=== PATIENT | male | born 1960 | race African-American/Black ===

== ENCOUNTER 2022-09-23 05:30 | Inpatient (IN) ==
[2022-09-17 11:32] LABS: Basophils # 0.1 10*3/uL (0.0-0.2); Basophils % 0.6 % (0.0-0.8); Eosinophils # 0.1 10*3/uL (0.0-0.87); Eosinophils % 1.2 % (0.00-10.9); Hematocrit 40.3 VOL% (42.0-52.0); Hemoglobin 13.1 GM/DL (14.0-18.0); Immature Granulocytes % 0.2 %; Immature Granulocytes Absolute 0.02 #; Lymphocytes # 3.6 10*3/uL (1.4-4.0); Lymphocytes % 44.5 % (21.2-54.2); Mean Corpuscular HGB Conc 32.5 GM/DL (32-36); Mean Corpuscular Volume 83.6 FL (87-102); Mean Platelet Volume 11.4 FL (9.6-12.0); Monocytes # 0.6 10*3/uL (0.11-0.8); Monocytes % 7.3 % (1.7-12.7); Neutrophils % 46.2 % (38.7-73.9); Platelet Count 272 T/CUMM (130-400); Red Blood Count 4.82 MC/CUMM (3.8-5.5); Red Cell Distribution Width 15.6 % (9.3-17.3); White Blood Count 8.1 T/CUMM (4-12)
[2022-09-17 12:00] LABS: Alanine Aminotransferase 41 U/L (16-61); Alkaline Phosphatase 94 U/L (45-117); Aspartate Amino Transferase 57 U/L (0-37); Bilirubin,Total < 0.39 MG/DL (0.20-1.00); Blood Urea Nitrogen 20 MG/DL (7-18); Calcium 9.3 MG/DL (8.5-10.1); Carbon Dioxide 30 MMOL/L (21-32); Chloride 108 MMOL/L (98-107); Glucose 125 MG/DL (74-106); Osmolality,Calculated 284.3 MOS/KG (273-304); Potassium 3.8 MMOL/L (3.5-5.1); Sodium 141 MMOL/L (136-145); Total Protein 7.7 G/DL (6.4-8.2)
[2022-09-23] MEDS ORDERED: cefTRIAXone 1,000 MG in SODIUM CHLORIDE 0.9% 100 ML IV ONE (06:00)
[2022-09-23] MEDS ORDERED: ALVIMOPAN 12 MG CAPSULE PO ONE (06:00)
[2022-09-23] MEDS: LACTATED RINGERS 1,000 ML IV SCH ×2 (06:13→21:09)
[2022-09-23] MEDS ORDERED: LIDOCAINE 2% 5 ML VIAL ONE (06:17)
[2022-09-23] MEDS ORDERED: ROCURONIUM 50 MG/5 ML VIAL IV ONE ×3 (06:17→10:32)
[2022-09-23] MEDS ORDERED: ONDANSETRON 4 MG/2 ML VIAL ONE (06:17)
[2022-09-23] MEDS ORDERED: propofoL 200 MG/20 ML VIAL IV ONE (06:17)
[2022-09-23] MEDS ORDERED: SUCCINYLCHOLINE 200 MG/10 ML VIAL ONE (06:18)
[2022-09-23] MEDS ORDERED: ROPIVACAINE 0.5% 30 ML VIAL ONE ×3 (06:36→06:46)
[2022-09-23] MEDS ORDERED: fentaNYL 100 MCG/2 ML VIAL ONE ×2 (06:38→11:38)
[2022-09-23] MEDS ORDERED: MIDAZOLAM 2 MG/2 ML VIAL ONE (06:38)
[2022-09-23] MEDS ORDERED: LIDOCAINE 1% 5 ML VIAL ONE (06:46)
[2022-09-23] MEDS ORDERED: PHENYLEPHRINE 1 MG/10 ML SYRINGE IV ONE ×3 (07:51→09:53)
[2022-09-23] MEDS ORDERED: ACETAMINOPHEN INJ 1,000 MG/100 ML VIAL IV ONE (07:53)
[2022-09-23] MEDS ORDERED: GLYCOPYRROLATE 0.4 MG/2 ML VIAL ONE (08:24)
[2022-09-23] MEDS ORDERED: ALBUMIN 5% 12.5 GM/250 ML VIAL IV ONE (09:50)
[2022-09-23] MEDS ORDERED: PHENYLEPHRINE 10 MG/1 ML VIAL IV ONE ×2 (09:51→09:53)
[2022-09-23 10:44] LABS: Hyaline Casts,Urine 1 /LPF (0-3); Mucus,Urine Occasional /LPF (Occasional); RBC,Urine 10 /HPF (0-4)
[2022-09-23 10:45] LABS: Bilirubin,Urine Negative (Negative); Glucose,Urine (UA) Negative (Negative); Ketones,Urine Negative (Negative); Nitrite,Urine Negative (Negative); Protein,Urine Negative (Negative); Urine Appearance Clear (Clear); Urine Color Yellow (Yellow)
[2022-09-23 10:46] LABS: Blood, Urine Small mg/dL (Negative); Urine Urobilinogen 0.2 eU/dL (<2.0)
[2022-09-23] MEDS ORDERED: SEVOFLURANE 1 UNIT/15 MINUTE INH ONE ×3 (11:10→12:04)
[2022-09-23] MEDS ORDERED: SUGAMMADEX 200 MG/2 ML VIAL IV ONE (11:33)
[2022-09-23] MEDS ORDERED: SIMETHICONE CHEW 125 MG TABLET PO PRN (11:40)
[2022-09-23] MEDS ORDERED: HYDROmorphone 1 MG/1 ML SYRINGE IV PRN (11:40)
[2022-09-23] MEDS ORDERED: diphenhydrAMINE 50 MG/1 ML VIAL IV PRN (11:40)
[2022-09-23] MEDS ORDERED: PROMETHAZINE 25 MG/1 ML VIAL IM PRN (11:40)
[2022-09-23] MEDS ORDERED: ONDANSETRON 4 MG/2 ML VIAL IV PRN (11:40)
[2022-09-23] MEDS ORDERED: GLUCAGON 1 MG VIAL IM PRN (11:44)
[2022-09-23] MEDS ORDERED: DEXTROSE 10% 250 ML BAG IV PRN (11:44)
[2022-09-23 12:44] LABS: Basophils % 0.3 % (0.0-0.8); Eosinophils % 0.1 % (0.00-10.9); Hematocrit 38.6 VOL% (42.0-52.0); Hemoglobin 12.3 GM/DL (14.0-18.0); Immature Granulocytes % 1.6 %; Immature Granulocytes Absolute 0.23 #; Lymphocytes # 2.3 10*3/uL (1.4-4.0); Lymphocytes % 16.1 % (21.2-54.2); Mean Corpuscular HGB Conc 31.9 GM/DL (32-36); Mean Corpuscular Volume 86.2 FL (87-102); Mean Platelet Volume 10.8 FL (9.6-12.0); Monocytes % 7.5 % (1.7-12.7); Neutrophils % 74.4 % (38.7-73.9); Platelet Count 224 T/CUMM (130-400); Red Blood Count 4.48 MC/CUMM (3.8-5.5); Red Cell Distribution Width 15.7 % (9.3-17.3)
[2022-09-23 12:52] LABS: Calcium 8.7 MG/DL (8.5-10.1); Osmolality,Calculated 285.1 MOS/KG (273-304)
[2022-09-23] MEDS: SODIUM CHLORIDE 0.9% 1,000 ML IV SCH (13:20)
[2022-09-23] MEDS: ACETAMINOPHEN 325 MG TABLET PO SCH ×2 (14:29→18:16)
[2022-09-23] MEDS: OXYBUTYNIN 5 MG TABLET PO SCH ×2 (15:50→21:08)
[2022-09-23] MEDS: INSULIN REGULAR 100 UNIT/ML SUBCUT SCH ×2 (16:27→23:21)
[2022-09-23] MEDS: DOCUSATE SODIUM 100 MG CAPSULE PO SCH (21:06)
[2022-09-23] MEDS: ALVIMOPAN 12 MG CAPSULE PO SCH (21:06)
[2022-09-23] MEDS: GABAPENTIN 600 MG TABLET PO SCH (21:06)
[2022-09-23] MEDS: oxyCODONE/ACETAMINOPHEN 5-325 MG TABLET PO PRN (21:06)
[2022-09-23] MEDS: METOPROLOL TARTRATE 25 MG TABLET PO SCH (21:08)
[2022-09-23] MEDS: TOPIRAMATE 25 MG TABLET PO SCH (21:08)
[2022-09-24] MEDS: SODIUM CHLORIDE 0.9% 1,000 ML IV SCH ×2 (01:32→07:27)
[2022-09-24] MEDS: ACETAMINOPHEN 325 MG TABLET PO SCH ×5 (01:32→18:13)
[2022-09-24 05:10] LABS: Basophils % 0.3 % (0.0-0.8); Eosinophils % 0.2 % (0.00-10.9); Hematocrit 33.7 VOL% (42.0-52.0); Hemoglobin 11.3 GM/DL (14.0-18.0); Immature Granulocytes % 0.3 %; Immature Granulocytes Absolute 0.03 #; Lymphocytes # 3.5 10*3/uL (1.4-4.0); Mean Corpuscular HGB Conc 33.5 GM/DL (32-36); Mean Corpuscular Volume 83.8 FL (87-102); Monocytes % 9.2 % (1.7-12.7); Platelet Count 213 T/CUMM (130-400); Red Blood Count 4.02 MC/CUMM (3.8-5.5); Red Cell Distribution Width 15.6 % (9.3-17.3); White Blood Count 11.2 T/CUMM (4-12)
[2022-09-24 05:33] LABS: Calcium 8.7 MG/DL (8.5-10.1); Osmolality,Calculated 285.8 MOS/KG (273-304); Potassium 3.4 MMOL/L (3.5-5.1)
[2022-09-24] MEDS: cefTRIAXone 1,000 MG in SODIUM CHLORIDE 0.9% 100 ML IV SCH (05:48)
[2022-09-24] MEDS: LACTATED RINGERS 1,000 ML IV SCH (05:49)
[2022-09-24] MEDS ORDERED: MAGNESIUM SULF RIDER 4 GM/100 ML PREMIX IV PRN (07:20)
[2022-09-24] MEDS ORDERED: MAGNESIUM SULF RIDER 2 GM/50 ML PREMIX IV PRN (07:20)
[2022-09-24] MEDS: INSULIN REGULAR 100 UNIT/ML SUBCUT SCH ×4 (07:23→22:50)
[2022-09-24] MEDS ORDERED: POTASSIUM CHLORIDE 20 MEQ TABLET PO ONE (08:00)
[2022-09-24] MEDS ORDERED: MAGNESIUM SULF RIDER 2 GM/50 ML PREMIX IV ONE (08:00)
[2022-09-24] MEDS: OXYBUTYNIN 5 MG TABLET PO SCH ×3 (08:20→22:21)
[2022-09-24] MEDS: GABAPENTIN 600 MG TABLET PO SCH ×2 (08:21→22:22)
[2022-09-24] MEDS: PANTOPRAZOLE 40 MG TABLET PO SCH (08:21)
[2022-09-24] MEDS: METOPROLOL TARTRATE 25 MG TABLET PO SCH ×2 (08:21→22:21)
[2022-09-24] MEDS: allopurinoL 300 MG TABLET PO SCH (08:21)
[2022-09-24] MEDS: ALVIMOPAN 12 MG CAPSULE PO SCH ×2 (08:21→22:22)
[2022-09-24] MEDS: DOCUSATE SODIUM 100 MG CAPSULE PO SCH ×2 (08:22→22:22)
[2022-09-24] MEDS: oxyCODONE/ACETAMINOPHEN 5-325 MG TABLET PO PRN ×2 (08:27→13:34)
[2022-09-24] MEDS: TOPIRAMATE 25 MG TABLET PO SCH (22:21)
[2022-09-25] MEDS: ACETAMINOPHEN 325 MG TABLET PO SCH ×2 (00:46→06:34)
[2022-09-25 05:38] LABS: Basophils % 0.3 % (0.0-0.8); Eosinophils # 0.1 10*3/uL (0.0-0.87); Hematocrit 33.4 VOL% (42.0-52.0); Hemoglobin 11.2 GM/DL (14.0-18.0); Immature Granulocytes % 0.3 %; Immature Granulocytes Absolute 0.03 #; Lymphocytes % 32.5 % (21.2-54.2); Mean Corpuscular HGB Conc 33.5 GM/DL (32-36); Mean Corpuscular Volume 83.9 FL (87-102); Monocytes # 0.9 10*3/uL (0.11-0.8); Monocytes % 9.6 % (1.7-12.7); Neutrophils % 56.3 % (38.7-73.9); Platelet Count 211 T/CUMM (130-400); Red Blood Count 3.98 MC/CUMM (3.8-5.5); Red Cell Distribution Width 15.3 % (9.3-17.3); White Blood Count 9.3 T/CUMM (4-12)
[2022-09-25 05:55] LABS: Calcium 8.5 MG/DL (8.5-10.1); Potassium 3.3 MMOL/L (3.5-5.1)
[2022-09-25] MEDS: cefTRIAXone 1,000 MG in SODIUM CHLORIDE 0.9% 100 ML IV SCH (06:34)
[2022-09-25] MEDS ORDERED: POTASSIUM CHLORIDE 20 MEQ TABLET PO ONE ×2 (07:02→07:10)
[2022-09-25 07:12] VITALS: BP 130/70
[2022-09-25] MEDS: INSULIN REGULAR 100 UNIT/ML SUBCUT SCH (07:46)
[2022-09-25] MEDS: DOCUSATE SODIUM 100 MG CAPSULE PO SCH (08:48)
[2022-09-25] MEDS: GABAPENTIN 600 MG TABLET PO SCH (08:48)
[2022-09-25] MEDS: METOPROLOL TARTRATE 25 MG TABLET PO SCH (08:48)
[2022-09-25] MEDS: PANTOPRAZOLE 40 MG TABLET PO SCH (08:48)
[2022-09-25] MEDS: allopurinoL 300 MG TABLET PO SCH (08:48)
[2022-09-25] MEDS: OXYBUTYNIN 5 MG TABLET PO SCH (08:48)
[2022-09-25] MEDS: ALVIMOPAN 12 MG CAPSULE PO SCH (08:49)
== END 2022-09-25 10:50 | disposition home health service (06) | DRG 707 ==
LOC: N.SDSINP 05:30 → N.3E 13:44
PROVIDERS: ADMIT Surgery; ATTEND Surgery